=== PATIENT | female | born 1995 | race African-American/Black ===

== ENCOUNTER 2018-03-20 12:30 | Emergency (ER) | payer MEDICAID ==
[2018-03-20 12:50] VITALS: BP 119/60
--- NOTE | 2018-03-20 13:38 | ER Document Report ---
HPI - HPI Patient complains to provider of: head congestion , sinus pain Onset: Other - 6 day Quality of pain: Pressure Pain Level: 3 Context: 22 yo female c/o maxillary sinus pain and pressure with green yellow nasal discharge for 6days. OTC meds not helping nor is nasal spray. No fever. Occasional cough with sore throat. No chest pain or sob. Associated Symptoms: None Exacerbated by: Denies Relieved by: Denies Similar symptoms previously: No Recently seen / treated by doctor: No - ROS ROS below otherwise negative: Yes Systems Reviewed and Negative: Yes All other systems reviewed and negative - EENT EENT: REPORTS: Sore Throat, Ear Pain - RESPIRATORY Respiratory: REPORTS: Coughing Past Medical History - General Information source: Patient - Social History Smoking Status: Never Smoker Chew tobacco use (# tins/day): No Frequency of alcohol use: Occasional Drug Abuse: None Lives with: Family Family History: Reviewed & Not Pertinent Patient has suicidal ideation: No Patient has homicidal ideation: No - Medical History Medical History: Negative Renal/ Medical History: Denies: Hx Peritoneal Dialysis Surgical Hx: Negative Vertical Provider Document - CONSTITUTIONAL Agree With Documented VS: Yes Exam Limitations: No Limitations - INFECTION CONTROL TRAVEL OUTSIDE OF THE [place] IN LAST 30 DAYS: No - HEENT HEENT: Pharyngeal Erythema. negative: Conjuctival Injection, Tympanic Membrane Red, Tympanic Membrane Bulging Notes: Tender maxillary sinuses no facial swelling, boggy naris - NECK Neck: Supple. negative: Lymphadenopathy-Left, Lymphadenopathy-Right - RESPIRATORY Respiratory: Breath Sounds Normal, No Respiratory Distress - CARDIOVASCULAR Cardiovascular: Regular Rate, Regular Rhythm Course - Vital Signs Vital signs: Temp Pulse Resp BP Pulse Ox 98.4 F 54 L 14 119/60 99 03/20/18 12:49 03/20/18 12:49 03/20/18 12:49 03/20/18 12:49 03/20/18 12:49 Discharge - Discharge Clinical Impression: Sinusitis Qualifiers: Sinusitis location: maxillary Chronicity: acute Recurrence: non-recurrent Qualified Code(s): J01.00 - Acute maxillary sinusitis, unspecified Condition: Good Disposition: HOME, SELF-CARE Instructions: Sinusitis ([facility]), Augmentin ([facility]), Acetaminophen Additional Instructions: saline nasal spray four times per day augmentin for 10 days heat to sinus to er if fever, worsening symptoms Prescriptions: Amoxicillin/Potassium Clav [Augmentin 875-125 Tablet] 1 each PO BID #20 tablet Forms: Return to Work Referrals: ANNA BELCHER DO [ASSOCIATE] - Follow up as needed
== END 2018-03-20 13:57 | disposition home or self-care (01) ==
LOC: ER 12:30
DX: J01.00 Acute maxillary sinusitis, unspecified (principal); R09.81 Nasal congestion
CPT/HCPCS: 99283

== ENCOUNTER 2018-08-11 16:51 | Emergency (ER) | payer MEDICAID ==
[2018-08-11 17:01] VITALS: BP 114/61
[2018-08-11] MEDS ORDERED: LIDOCAINE 2% VISCOUS SOLN 20 ML UDCUP PO ONE (18:16)
--- NOTE | 2018-08-11 18:19 | ER Document Report ---
HPI - HPI Patient complains to provider of: Mouth sore Time Seen by Provider: 08/11/18 17:50 Onset: Other - 4 days Onset/Duration: Persistent Quality of pain: Achy Pain Level: 3 Context: Patient complains of tender sore in mouth for the past 4 days. Patient denies any trauma. Patient denies any fever or other symptoms at this time. Patient states the pain causes her difficulty with talking on the phone at her job and she needs a note for work. Associated Symptoms: Other - Mouth sore. denies: Fever, Headache, Sore throat Exacerbated by: Denies Relieved by: Denies Similar symptoms previously: No Recently seen / treated by doctor: No - ROS ROS below otherwise negative: Yes Systems Reviewed and Negative: Yes All other systems reviewed and negative - CONSTITUTIONAL Constitutional: DENIES: Fever, Chills - EENT Notes: Sore in mouth - GASTROINTESTINAL Gastrointestinal: DENIES: Nausea, Patient vomiting - REPRODUCTIVE Reproductive: DENIES: : - DERM Skin Color: Normal Past Medical History - General Information source: Patient - Social History Smoking Status: Never Smoker Frequency of alcohol use: Occasional Drug Abuse: None Occupation: [employer] Family History: Reviewed & Not Pertinent - Medical History Medical History: Negative Renal/ Medical History: Denies: Hx Peritoneal Dialysis Surgical Hx: Negative Vertical Provider Document - CONSTITUTIONAL Agree With Documented VS: Yes Exam Limitations: No Limitations General Appearance: WD/WN, No Apparent Distress - INFECTION CONTROL TRAVEL OUTSIDE OF THE [place] IN LAST 30 DAYS: No - HEENT HEENT: Atraumatic, Normocephalic. negative: Pharyngeal Exudate, Pharyngeal Tenderness, Pharyngeal Erythema, Tympanic Membrane Red, Tympanic Membrane Bulging Mouth Diagram: 1 - tender ulceration to sublingal area - NECK Neck: Normal Inspection, Supple. negative: Lymphadenopathy-Left, Lymphadenopathy-Right - RESPIRATORY Respiratory: Breath Sounds Normal, No Respiratory Distress - CARDIOVASCULAR Cardiovascular: Regular Rate, Regular Rhythm - BACK Back: Normal Inspection - MUSCULOSKELETAL/EXTREMETIES Musculoskeletal/Extremeties: TAVO JUAREZ - NEURO Level of Consciousness: Awake, Alert, Appropriate Motor/Sensory: No Motor Deficit - DERM Integumentary: Warm, Dry Course - Vital Signs Vital signs: Temp Pulse Resp BP Pulse Ox 98.3 F 56 L 16 114/61 98 08/11/18 16:59 08/11/18 16:59 08/11/18 16:59 08/11/18 16:59 08/11/18 16:59 Discharge - Discharge Clinical Impression: Sore in mouth Condition: Stable Disposition: HOME, SELF-CARE Instructions: Mouth Sores ([facility]) Additional Instructions: Return immediately for any new or worsening symptoms Followup with your primary care provider, call tomorrow to make a followup appointment You may use [id number]-[id number] Orajel topically to painful areas. Prescriptions: Naproxen [Naprosyn 250 Nmg Tablet] 1 tab PO BID #14 tablet Nystatin/Dexameth/Diphen [Magic Mouthwash ([facility] Formula) Susp] 5 ml PO QID PRN #120 ml PRN Reason: Forms: Parent Work Note, Return to Work Referrals: [facility] [Provider Group] - Follow up as needed
== END 2018-08-11 18:24 | disposition home or self-care (01) ==
LOC: ER 16:51
DX: K13.79 Other lesions of oral mucosa (principal)
CPT/HCPCS: 99283; J3490

== ENCOUNTER 2018-08-20 18:25 | Emergency (ER) | payer MEDICAID ==
[2018-08-20 21:19] LABS: A TYPE INFLUENZA AG NEGATIVE (NEGATIVE); B INFLUENZA AG NEGATIVE (NEGATIVE)
[2018-08-20] MEDS ORDERED: ACETAMINOPHEN 325 MG TABLET PO ONE (21:36)
[2018-08-20] MEDS ORDERED: IBUPROFEN 600 MG TABLET PO ONE (21:36)
--- NOTE | 2018-08-20 21:37 | ER Document Report ---
ED General - General Chief Complaint: Flu Symptoms Stated Complaint: BODY ACHES Time Seen by Provider: 08/20/18 20:29 Notes: Patient is a 22-year-old female without chronic medical problems who presents with 24 hours of sore throat, nasal congestion and body aches. She states that her main complaint is body aches which are described as diffuse cramping, aching musculoskeletal discomforts. She has not tried to improve her symptoms. Nothin g worsens her symptoms. Denies recent history of similar symptoms. Has not seen her general physician regarding today's concerns. Has not had a recorded fever. Denies associated headache, neck pain, vomiting, diarrhea or altered mental status. TRAVEL OUTSIDE OF THE [place] IN LAST 30 DAYS: No - Related Data Allergies/Adverse Reactions: No Known Allergies Allergy (Verified 08/11/18 17:00) Past Medical History - General Information source: Patient - Social History Smoking Status: Never Smoker Frequency of alcohol use: None Drug Abuse: None Lives with: Spouse/Significant other Family History: Reviewed & Not Pertinent Patient has suicidal ideation: No Patient has homicidal ideation: No Renal/ Medical History: Denies: Hx Peritoneal Dialysis Review of Systems - Review of Systems Notes: Constitutional: Negative for fever. Positive for myalgias HENT: Positive for sore throat and nasal congestion Eyes: Negative for visual changes. Cardiovascular: Negative for chest pain. Respiratory: Negative for shortness of breath. Gastrointestinal: Negative for abdominal pain, vomiting or diarrhea. Genitourinary: Negative for dysuria. Musculoskeletal: Negative for back pain. Skin: Negative for rash. Neurological: Negative for headaches, weakness or numbness. 10 point ROS negative except as marked above and in HPI. Physical Exam - Vital signs Vitals: Temp Pulse Resp BP Pulse Ox 99.3 F 52 L 18 140/109 H 98 08/20/18 18:31 08/20/18 18:31 08/20/18 18:31 08/20/18 18:31 08/20/18 18:31 Interpretation: Normal Notes: PHYSICAL EXAMINATION: GENERAL: Appears moderately uncomfortable but in no acute distress HEAD: Atraumatic, normocephalic. EYES: Pupils equal round and reactive to light, extraocular movements intact, sclera anicteric, conjunctiva are normal. ENT: nares patent, oropharynx clear without exudates. Mild tonsillar erythema. Moist mucous membranes. NECK: Normal range of motion, bilateral anterior cervical lymphadenopathy LUNGS: Breath sounds clear to auscultation bilaterally and equal. No wheezes rales or rhonchi. HEART: Regular rate and rhythm without murmurs ABDOMEN: Soft, nontender, normoactive bowel sounds. No guarding, no rebound. No masses appreciated. EXTREMITIES: Normal range of motion, no pitting or edema. No cyanosis. NEUROLOGICAL: No focal neurological deficits. Moves all extremities spontaneously and on command. PSYCH: Normal mood, normal affect. SKIN: Warm, Dry, normal turgor, no rashes or lesions noted. Course - Re-evaluation Re-evalutation: 08/20/18 21:36 Presentation is most consistent with a viral upper respiratory infection. Patient is overall well appearance, vitals within normal limits, well-hydrated. Patient denies any headache, neck pain, and has no evidence of meningismus on examination. Patient is primarily complaining of sore throat, nasal congestion and body aches. Rapid flu and strep are negative. Lungs are clear bilaterally. No evidence of respiratory distress. Based on clinical exam and history, I do not suspect an acute pneumonia, meningitis, strep pharyngitis, or an acute encephalitis. No further laboratory or imaging testing is indicated at this time. At this time will discharge with return precautions and follow-up recommendations. Verbal discharge instructions given a the bedside and opportunity for questions given. Medication warnings reviewed. Patient is in agreement with this plan and has verbalized understanding of return precautions and the need for primary care follow-up in the next 24-72 hours. - Vital Signs Vital signs: Temp Pulse Resp BP Pulse Ox 98.9 F 92 19 130/98 H 98 08/20/18 23:18 08/20/18 23:18 08/20/18 23:18 08/20/18 23:18 08/20/18 23:18 Discharge - Discharge Clinical Impression: Viral upper respiratory infection, Body aches Condition: Good Disposition: HOME, SELF-CARE Additional Instructions: Your symptoms are most likely due to a viral infection it should resolve over the next 7-14 days. You should take rfvw-faw-lxqedue guanfacine per bottle instructions to help thin the mucus. For nasal congestion: I would recommend that you get jjch-ppv-tsapohw oxymetazoline also known is afrin. Use only per bottle instructions and be sure to never use this for more than 3 days if you can develop severe rebound congestion. You may also use tylenol or ibuprofen as needed for aches and thorat discomfort. Please be sure to drink plenty of fluids and get rest. Return to the emergency department he began having difficulty breathing, chest pain, persistent vomiting, or any other symptoms that are concerning to you.
[2018-08-20 23:18] VITALS: BP 130/98
== END 2018-08-20 23:18 | disposition home or self-care (01) ==
LOC: ER 18:25
DX: J06.9 Acute upper respiratory infection, unspecified (principal); B97.89 Other viral agents as the cause of diseases classified elsewhere; J02.9 Acute pharyngitis, unspecified; R09.81 Nasal congestion; R25.2 Cramp and spasm; M79.10 Myalgia, unspecified site
CPT/HCPCS: 99283; 87070; 87880; 87804; J3490 ×2

== ENCOUNTER 2018-11-06 17:33 | Emergency (ER) | payer MEDICAID ==
--- NOTE | 2018-11-06 18:28 | ER Document Report ---
ED Medical Screen (RME) - General Chief Complaint: Shortness Of Breath Stated Complaint: CHEST TIGHTNESS Time Seen by Provider: 11/06/18 18:25 Mode of Arrival: Ambulatory Notes: pt reports chest tightness, cough, no c/o f/v/d. speaking in clear sentences, no sob, denies cad, asthma, recent trips. I have greeted and performed a rapid initial assessment of this patient. A comprehensive ED assessment and evaluation of the patient, analysis of test results and completion of the medical decision making process will be conducted by additional ED providers. TRAVEL OUTSIDE OF THE [place] IN LAST 30 DAYS: No - Related Data Allergies/Adverse Reactions: No Known Allergies Allergy (Verified 08/11/18 17:00) Past Medical History Renal/ Medical History: Denies: Hx Peritoneal Dialysis Physical Exam - Vital signs Vitals: Temp Pulse Resp BP Pulse Ox 98.5 F 59 L 18 134/67 H 100 11/06/18 18:24 11/06/18 18:24 11/06/18 18:24 11/06/18 18:24 11/06/18 18:24 Course - Vital Signs Vital signs: Temp Pulse Resp BP Pulse Ox 98.5 F 59 L 18 134/67 H 100 11/06/18 18:24 11/06/18 18:24 11/06/18 18:24 11/06/18 18:24 11/06/18 18:24
--- NOTE | 2018-11-06 18:54 | RADIOLOGY REPORT (SQ) ---
EXAM DESCRIPTION: CHEST 2 VIEWS COMPLETED DATE/TIME: 11/06/2018 6:44 pm REASON FOR STUDY: c/o cough, chest tight COMPARISON: None. EXAM PARAMETERS: NUMBER OF VIEWS: two views TECHNIQUE: Digital Frontal and Lateral radiographic views of the chest acquired. RADIATION DOSE: NA LIMITATIONS: none FINDINGS: LUNGS AND PLEURA: No opacities, masses or pneumothorax. No pleural effusion. MEDIASTINUM AND HILAR STRUCTURES: No masses or contour abnormalities. HEART AND VASCULAR STRUCTURES: Heart normal size. No evidence for failure. BONES: No acute findings. HARDWARE: None in the chest. OTHER: No other significant finding. IMPRESSION: NO ACUTE RADIOGRAPHIC FINDING IN THE CHEST. TECHNICAL DOCUMENTATION: JOB ID: [id number] [place]-72 2010 [employer]- All Rights Reserved Reading location - IP/workstation name: [email or web address]
--- NOTE | 2018-11-06 20:53 | ER Document Report ---
HPI - HPI Time Seen by Provider: 11/06/18 18:25 Pain Level: 5 Context: She is a 23-year-old female who presents to the emergency department with a chief complaint of chest tightness and having a hard time breathing. She states that she is also having pains in it hurts when she takes a deep breath in. She has been coughing all day. She has a history of allergies, but stopped taking her Claritin due to her not wanting to take the medication anymore. She attempted to go see her primary care provider, but was not able to to see them because she apparently does not have insurance anymore and had to pay $800 to see her primary care doctor. Associated Symptoms: Allergy/hay fever - CONSTITUTIONAL Constitutional: DENIES: Fever, Chills - EENT EENT: REPORTS: Sore Throat, Nasal Drainage-Clear - NEURO Neurology: REPORTS: Headache - RESPIRATORY Respiratory: REPORTS: Trouble Breathing, Coughing - GASTROINTESTINAL Gastrointestinal: DENIES: Abdominal Pain, Nausea, Patient vomiting, Diarrhea - REPRODUCTIVE Reproductive: DENIES: : - DERM Skin Color: Normal Skin Problems: None Past Medical History - General Information source: Patient - Social History Smoking Status: Never Smoker Frequency of alcohol use: Occasional Drug Abuse: None Family History: Reviewed & Not Pertinent Renal/ Medical History: Denies: Hx Peritoneal Dialysis Vertical Provider Document - CONSTITUTIONAL Agree With Documented VS: Yes Exam Limitations: No Limitations General Appearance: No Apparent Distress - INFECTION CONTROL TRAVEL OUTSIDE OF THE [place] IN LAST 30 DAYS: No - HEENT HEENT: Atraumatic, Normocephalic, PERRLA - NECK Neck: Normal Inspection - RESPIRATORY Respiratory: Breath Sounds Normal, No Respiratory Distress Notes: Cough noted - CARDIOVASCULAR Cardiovascular: Regular Rate, Regular Rhythm Pulses: Normal: Radial - MUSCULOSKELETAL/EXTREMETIES Musculoskeletal/Extremeties: FROM - NEURO Level of Consciousness: Awake, Alert, Appropriate Motor/Sensory: No Motor Deficit, No Sensory Deficit, No Pronator Drift - DERM Integumentary: Warm, Dry Course - Re-evaluation Re-evalutation: 11/06/18 20:55 Patient's physical exam is consistent with seasonal allergies. It is springtime in [place] and there is pollen everywhere. She will be charted on cetirizine and Flonase to help with her symptoms. She will follow-up with her primary care provider when she gets insurance again. - Vital Signs Vital signs: Temp Pulse Resp BP Pulse Ox 98.5 F 59 L 18 134/67 H 100 11/06/18 18:24 11/06/18 18:24 11/06/18 18:24 11/06/18 18:24 11/06/18 18:24 - EKG Interpretation by Me Additional EKG results interpreted by me: 11/06/18 21:01 Sinus arrhythmia. Rate 60; CA 124; QRS 82; QT 400; QTC 400. No ST elevations or depressions. Discharge - Discharge Clinical Impression: Seasonal allergies Condition: Stable Disposition: HOME, SELF-CARE Additional Instructions: You were seen today in the emergency department for chest pains and difficulty breathing. Your symptoms are due to your allergies. Please start taking the allergy medication prescribed. You have also been prescribed Flonase, medication to help with inflammation in your nose. Take as directed. Please follow-up with your primary care once you get insurance in regards to this visit. Prescriptions: Cetirizine HCl [All Day Allergy] 10 mg PO DAILY #30 tablet Fluticasone Propionate [Flonase Nasal Kent 50 Mcg/Kent 16 gm] 2 sprays NASL Q12 #1 inhaler Forms: Return to Work
[2018-11-06] MEDS ORDERED: CETIRIZINE 10 MG TABLET PO ONE (20:54)
[2018-11-06 21:05] VITALS: BP 116/64
--- NOTE | 2018-11-06 21:24 | EKG REPORT ---
SEVERITY:- OTHERWISE NORMAL ECG - SINUS ARRHYTHMIA, RATE 50-74 : Confirmed by: Kate Du MD 06-Nov-2018 21:23:54
== END 2018-11-06 21:06 | disposition home or self-care (01) ==
LOC: ER 17:33
DX: J30.2 Other seasonal allergic rhinitis (principal); R07.9 Chest pain, unspecified; R05 Cough; R51 Headache
CPT/HCPCS: 93005; 99285; 71046; 93010; J3490

== ENCOUNTER 2019-01-24 14:59 | Emergency (ER) | payer SELFPAY ==
[2019-01-24 15:06] VITALS: BP 136/62
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
== END 2019-01-24 16:31 | disposition home or self-care (01) ==
LOC: ER 14:59
DX: M54.2 Cervicalgia (principal); Y08.89XA Assault by other specified means, initial encounter
CPT/HCPCS: 99282

== ENCOUNTER 2019-04-22 19:52 | Emergency (ER) | payer SELFPAY ==
--- NOTE | 2019-04-22 22:58 | ER Document Report ---
HPI - HPI Patient complains to provider of: uri and sinus congestion sx Time Seen by Provider: 04/22/19 22:58 Pain Level: Denies - CONSTITUTIONAL Constitutional: DENIES: Fever, Chills - REPRODUCTIVE Reproductive: DENIES: : Past Medical History - Social History Smoking Status: Unknown if Ever Smoked Family History: Reviewed & Not Pertinent Patient has suicidal ideation: No Patient has homicidal ideation: No Renal/ Medical History: Denies: Hx Peritoneal Dialysis Vertical Provider Document - INFECTION CONTROL TRAVEL OUTSIDE OF THE [place] IN LAST 30 DAYS: No Course - Vital Signs Vital signs: Temp Pulse Resp BP Pulse Ox 97.9 F 62 18 122/68 99 04/22/19 20:04/22/19 20:04/22/19 20:04/22/19 20:04/22/19 20:09 Discharge - Discharge Clinical Impression: Acute sinusitis Qualifiers: Sinusitis location: unspecified location Recurrence: non-recurrent Qualified Code(s): J01.90 - Acute sinusitis, unspecified Condition: Good Disposition: HOME, SELF-CARE Instructions: Sinusitis ([facility]) Additional Instructions: Follow-up with PCP in 1 to 2 days. Return for any worsening symptoms. tylenol or motrin as needed for any pain or fever if not allergic. take the medication as prescribed. drink plenty of fluids. Prescriptions: Amox Tr/Potassium Clavulanate [Augmentin 875-125 Tablet] 1 tab PO BID 10 Days #20 tablet Pseudoephedrine HCl [Sudafed 12 Hour] 120 mg PO Q12 PRN #14 tablet.er PRN Reason:
[2019-04-22] MEDS ORDERED: DEXAMETHASONE SOD PHOS INJ 10 MG/1 ML VIAL INJ ONE (23:20)
[2019-04-23 00:04] VITALS: BP 120/69
== END 2019-04-22 23:30 | disposition home or self-care (01) ==
LOC: ER 19:52
DX: J01.90 Acute sinusitis, unspecified (principal); J06.9 Acute upper respiratory infection, unspecified; R09.81 Nasal congestion
CPT/HCPCS: 99283; J1100

== ENCOUNTER 2019-08-03 20:46 | Emergency (ER) | payer SELFPAY ==
[2019-08-03] MEDS ORDERED: NORMAL SALINE 1000 ML 1,000 ML IV ONE (21:18)
--- NOTE | 2019-08-03 21:22 | ER Document Report ---
ED Medical Screen (RME) - General Chief Complaint: Dizziness Stated Complaint: WEAKNESS Time Seen by Provider: 08/03/19 21:14 TRAVEL OUTSIDE OF THE [place] IN LAST 30 DAYS: No - HPI Notes: 08/03/19 21:19 23-year-old female to the emergency department with complaints of weakness like she is going to pass out that began today. She states that she is currently on her menstrual cycle and it is been abnormally heavy for the past 2 days. She uses a diva cup and usually only has to empty it once a day but yesterday she had to empty it 4 times and today she is incident 5 times. She states she has not passed out but every time she tries to stand up she feels like she is going to go down. She denies any shortness of breath, chest pain. She admits to some slight pelvic pressure and discomfort. She is never had a problem like this in the past. She denies chance for . Performed a brief medical screening exam on the patient and determined that she will need further evaluation by main side provider. Have ordered labs to expedite her care. - Related Data Allergies/Adverse Reactions: No Known Allergies Allergy (Verified 01/24/19 15:00) Past Medical History - Social History Frequency of alcohol use: Occasional Drug Abuse: None Renal/ Medical History: Denies: Hx Peritoneal Dialysis Physical Exam - Vital signs Vitals: Temp Pulse Resp BP Pulse Ox 98.4 F 71 16 116/74 98 08/03/19 21:05 08/03/19 21:05 08/03/19 21:05 08/03/19 21:05 08/03/19 21:05 Course - Vital Signs Vital signs: Temp Pulse Resp BP Pulse Ox 98.4 F 71 16 116/74 98 08/03/19 21:05 08/03/19 21:05 08/03/19 21:05 08/03/19 21:05 08/03/19 21:05
[2019-08-04 00:20] LABS: ABSOLUTE LYMPHOCYTES (AUTO) 1.9 10^3/uL (0.5-4.7); ABSOLUTE MONOCYTES (AUTO) 0.4 10^3/uL (0.1-1.4); ABSOLUTE NEUT (AUTO) 2.2 10^3/uL (1.7-8.2); BASOPHILS % (AUTO) 0.6 % (0-2); EOSINOPHILS % (AUTO) 1.1 % (0-6); HEMATOCRIT 39.8 % (36.0-47.0); HEMOGLOBIN 13.4 g/dL (12.0-15.5); LYMPHOCYTES % (AUTO) 42.2 % (13-45); MEAN CORPUSCULAR HEMOGLOBIN 29.2 pg (27.0-33.4); MEAN CORPUSCULAR HGB CONC 33.6 g/dL (32.0-36.0); MEAN CORPUSCULAR VOLUME 87 fl (80-97); MONOCYTES % (AUTO) 9.1 % (3-13); PLATELET COUNT 302 10^3/uL (150-450); RED BLOOD COUNT 4.57 10^6/uL (3.72-5.28); RED CELL DISTRIBUTION WIDTH 13.4 % (11.5-14.0); TOTAL CELLS COUNTED % (AUTO) 100 %; WHITE BLOOD COUNT 4.6 10^3/uL (4.0-10.5)
[2019-08-04 00:39] LABS: ALBUMIN 4.5 g/dL (3.5-5.0); ALKALINE PHOSPHATASE 65 U/L (38-126); ANION GAP 13 (5-19); ASPARTATE AMINO TRANSFERASE 21 U/L (14-36); BILIRUBIN,DIRECT 0.2 mg/dL (0.0-0.4); BILIRUBIN,TOTAL 0.3 mg/dL (0.2-1.3); BLOOD UREA NITROGEN 10 mg/dL (7-20); CALCIUM 9.3 mg/dL (8.4-10.2); CARBON DIOXIDE 22 mmol/L (22-30); CHLORIDE 104 mmol/L (98-107); GLUCOSE 92 mg/dL (75-110); POTASSIUM 3.9 mmol/L (3.6-5.0); TOTAL PROTEIN 8.4 g/dL (6.3-8.2)
[2019-08-04 03:11] VITALS: BP 121/65
--- NOTE | 2019-08-04 09:27 | EKG REPORT ---
SEVERITY:- OTHERWISE NORMAL ECG - SINUS RHYTHM ATRIAL PREMATURE COMPLEX : Confirmed by: Bjorn Craig 04-Aug-2019 09:27:16
--- NOTE | 2019-08-06 09:15 | ER Document Report ---
Entered by THU LLAMAS SCRIBE 08/04/19 0136 Acting as scribe for:JAMMIE VINES IV, MD ED General - General Chief Complaint: Dizziness Stated Complaint: WEAKNESS Time Seen by Provider: 08/03/19 21:14 Primary Care Provider: ELIS TOMLIN MD [HONORARY] - Follow up as needed Mode of Arrival: Ambulatory Information source: Patient Notes: This 23-year-old female patient presents to the emergency department today with complaints of generalized weakness. Patient states when she stands up she feels very lightheaded. Patient states that she is currently on her period and she has a history of heavy menstrual bleeding which is consistent with this current menses. Patient denies any recent illnesses. Of note, the patient has been dieting recently, stating she recently switched to the keto diet which is new for her. TRAVEL OUTSIDE OF THE [place] IN LAST 30 DAYS: No - Related Data Allergies/Adverse Reactions: No Known Allergies Allergy (Verified 01/24/19 15:00) Past Medical History - General Information source: Patient - Social History Smoking Status: Never Smoker Cigarette use (# per day): No Frequency of alcohol use: Occasional Drug Abuse: None Lives with: Family Family History: Reviewed & Not Pertinent Patient has suicidal ideation: No Patient has homicidal ideation: No Review of Systems - Review of Systems Constitutional: See HPI, Weakness EENT: No symptoms reported Cardiovascular: See HPI, Lightheaded Respiratory: No symptoms reported Gastrointestinal: No symptoms reported Genitourinary: No symptoms reported Female Genitourinary: No symptoms reported Musculoskeletal: No symptoms reported Skin: No symptoms reported Hematologic/Lymphatic: No symptoms reported Neurological/Psychological: No symptoms reported -: Yes All other systems reviewed and negative Physical Exam - Vital signs Vitals: Temp Pulse Resp BP Pulse Ox 98.4 F 71 16 116/74 98 08/03/19 21:05 08/03/19 21:05 08/03/19 21:05 08/03/19 21:05 08/03/19 21:05 - Notes Notes: Physical Exam: General: Alert, appears well. HEENT: Normocephalic. Atraumatic. PERRL. Extraocular movements intact. Oropharynx clear. Neck: Supple. Non-tender. Respiratory: No respiratory distress. Clear and equal breath sounds bilaterally. Cardiovascular: Regular rate and rhythm. Abdominal: Normal Inspection. Non-tender. No distension. Normal Bowel Sounds. Back: No gross abnormalities. Extremities: Moves all four extremities. Upper extremities: Normal inspection. Normal ROM. Lower extremities: Normal inspection. No edema. Normal ROM. Neurological: Normal cognition. AAOx4. Normal speech. Psychological: Normal affect. Normal Mood. Skin: Warm. Dry. Normal color. Course - Vital Signs Vital signs: Temp Pulse Resp BP Pulse Ox 98.5 F 64 16 121/65 100 08/04/19 00:54 08/04/19 03:02 08/04/19 00:54 08/04/19 03:02 08/04/19 00:54 - Laboratory Result Diagrams: 08/03/19 23:59 08/03/19 23:59 Laboratory results interpreted by me: 08/03/19 23:59 Total Protein 8.4 H Discharge - Discharge Clinical Impression: Dizziness Condition: Good Disposition: HOME, SELF-CARE Instructions: Dizziness ([facility]) Additional Instructions: Return to the Emergency Department without delay if any worse. HOME CARE INSTRUCTIONS & INFORMATION: Thank you for choosing us for your medical needs. We hope you're satisfied with the care you received. After you leave, you must properly care for your problem and, at the same time, observe its progress. Any condition can change. Some illnesses can change rapidly over hours or days. If your condition worsens, return to the Emergency Department o r see your physician promptly. ABOUT YOUR X-RAYS AND EKG'S: If you had an EKG or X-rays taken, they have been read by the Emergency Physician. The X-rays and EKG's will also be read by a Radiologist or Manager Small Business within 24 hours. If discrepancies are noted, you will be notified by telephone. Please be certain the ED has a correct telephone number & address where you can be reached. Also, realize that some fractures or abnormalities do not show up on initial X-rays. If your symptoms continue, see your physician. ABOUT YOUR LABORATORY TEST: If you had laboratory tests, the results have been reviewed by the Emergency Physician. Some test results (for example cultures) may not be available for several days. You will be contacted if any test result shows you need additional treatment. Please be certain the ED has a correct telephone number and address where you can be reached. ABOUT YOUR MEDICATIONS: You will receive instructions on how to take your medicine on the prescription label you receive. Additional information may be provided by the Pharmacy. If you have questions afterwards, call the ED for clarification or further instructions. Some prescribed medications may cause drowsiness. Do not perform tasks such as driving a car or operating machinery without consulting your Pharmacist. If you feel you need a refill of pain medication, your condition will need re-evaluation. Please do not call for a refill of any medication. ABOUT YOUR SIGNATURE: Signature of this document acknowledges to followin. Understanding that you received emergency treatment and that you may be released before al medical problems are known or treated. Please be certain the ED has a correct phone number & address where you can be reached. 2. Acknowledgement that you will arrange for follow-up care as recommended. 3. Authorization for the Emergency Physician to provide information to your follow-up Physician in order to maximize your care. AT ANY TIME, IF YOUR SYMPTOMS CHANGE SIGNIFICANTLY OR WORSEN OR YOU DEVELOP NEW SYMPTOMS, RETURN TO THE EMERGENCY DEPARTMENT IMMEDIATELY FOR RE-EVALUATION. OUR GOAL IS TO PROVIDE EXCELLENT MEDICAL CARE! WE HOPE THAT WE HAVE MET YOUR EXPECTATIONS DURING YOUR EMERGENCY DEPARTMENT VISIT AND THAT YOU FEEL YOU HAVE RECEIVED EXCELLENT CARE! Forms: Return to Work Referrals: ELIS TOMLIN MD [HONORARY] - Follow up as needed I personally performed the services described in the documentation, reviewed and edited the documentation which was dictated to the scribe in my presence, and it accurately records my words and actions.
== END 2019-08-04 03:32 | disposition home or self-care (01) ==
LOC: ER 20:46
DX: R42 Dizziness and giddiness (principal); R53.1 Weakness
CPT/HCPCS: 93005; 99284; 96360; 96361; 86900; 86901; 36415; 86850; 84703; 85025; 80053; 93010; J7030

== ENCOUNTER 2019-08-09 18:12 | Emergency (ER) | payer SELFPAY ==
[2019-08-09] MEDS ORDERED: PREDNISONE 20 MG TABLET PO ONE (21:46)
[2019-08-09] MEDS ORDERED: BENZONATATE 100 MG CAPSULE PO ONE (21:46)
--- NOTE | 2019-08-09 21:47 | ER Document Report ---
HPI - HPI Time Seen by Provider: 08/09/19 21:41 Notes: 23-year-old female presenting to the emergency department cough, congestion, sore throat and body aches over the last 5 to 6 days. Patient denies knowledge of any fever. Reports multiple sick contacts at work. - REPRODUCTIVE Reproductive: DENIES: : Past Medical History - General Information source: Patient - Social History Smoking Status: Never Smoker Frequency of alcohol use: None Drug Abuse: None Family History: Reviewed & Not Pertinent - Medical History Medical History: Negative Renal/ Medical History: Denies: Hx Peritoneal Dialysis Surgical Hx: Negative Vertical Provider Document - CONSTITUTIONAL Notes: PHYSICAL EXAMINATION: GENERAL: Well-appearing, well-nourished and in no acute distress. HEAD: Atraumatic, normocephalic. EYES: Pupils equal round extraocular movements intact, conjunctiva are normal. ENT: Nares patent, no obvious tonsillar swelling or exudates. NECK: Normal range of motion LUNGS: No respiratory distress, lung sounds clear and equal bilaterally Musculoskeletal: Normal range of motion NEUROLOGICAL: Normal speech, normal gait. PSYCH: Normal mood, normal affect. SKIN: Warm, Dry, normal turgor, no rashes or lesions noted. - INFECTION CONTROL TRAVEL OUTSIDE OF THE [place] IN LAST 30 DAYS: No Course - Re-evaluation Re-evalutation: Microbiology 08/09/19 21:45 Throat Culture - Preliminary Throat Laboratory 08/09/19 08/09/19 21:45 21:45 Influenza A (Rapid) NEGATIVE Influenza B (Rapid) POSITIVE Group A Strep Rapid NEGATIVE Patient appears well, nontoxic, physical examination is unremarkable. Patient tested positive for influenza B. Patient will be discharged home in stable condition at this time. - Vital Signs Vital signs: Temp Pulse Resp BP Pulse Ox 98.7 F 89 16 101/83 100 08/09/19 18:42 08/09/19 18:42 08/09/19 18:42 08/09/19 18:42 08/09/19 18:42 Discharge - Discharge Clinical Impression: Influenza Condition: Stable Disposition: HOME, SELF-CARE Additional Instructions: You tested positive for the flu. This is a virus and will not respond to antibiotic therapy. I have written you a prescription to help with the symptoms. Please wash your hands and stay away from people, no work for a total of 7 days from the first day you got sick. Drink plenty of fluids. Alternate Tylenol and ibuprofen Prescriptions: Benzonatate [Tessalon Perles 100 mg Capsule] 1 - 2 tab PO Q8HP PRN #30 capsule PRN Reason: Prednisone [Deltasone 20 mg Tablet] 3 tab PO DAILY 5 Days #15 tablet Forms: Return to Work
[2019-08-09 22:46] LABS: A TYPE INFLUENZA AG NEGATIVE (NEGATIVE); B INFLUENZA AG POSITIVE (NEGATIVE)
[2019-08-09 23:35] VITALS: BP 134/77
== END 2019-08-09 23:35 | disposition home or self-care (01) ==
LOC: ER 18:12
DX: J11.1 Influenza due to unidentified influenza virus with other respiratory manifestations (principal); M79.10 Myalgia, unspecified site
CPT/HCPCS: 87070; 87804; 87880; 99283

== ENCOUNTER 2019-10-22 19:07 | Emergency (ER) | payer SELFPAY ==
--- NOTE | 2019-10-22 19:43 | ER Document Report ---
HPI - HPI Patient complains to provider of: Cellulitis to left ear and left ring finger nail area Time Seen by Provider: 10/22/19 19:32 Onset: Last week Onset/Duration: Gradual, Persistent Quality of pain: Achy Severity: Moderate Pain Level: 3 Context: 24-year-old female presented to ED for infected earring to the left ear and a cellulitis around the left ring finger nail. She has artificial nails on her nails and she has had this fingernail several times knocking the nail back some. The nail is mildly loose. States that she did have some drainage from around the nail a couple days ago. Is drainage from the site of the left earring. The earring has been removed and irrigated with saline. We will place the patient on Keflex for both infections. She has stated she would remove the length from the nail and soak her finger 3 times a day. Associated Symptoms: Other - Affected hearing to the left ear and cellulitis around the nail from a injured nail to the left ring finger Exacerbated by: Movement - Movement of the ear or the nail Relieved by: Other - Holding the nail in the ear still Similar symptoms previously: No Recently seen / treated by doctor: No - CONSTITUTIONAL Constitutional: DENIES: Fever, Chills - EENT EENT: REPORTS: Ear Pain. DENIES: Sore Throat, Nasal Drainage-Clear, Nasal Drainage-Purulent, Congestion, Eye problems - CARDIOVASCULAR Cardiovascular: DENIES: Chest pain - RESPIRATORY Respiratory: DENIES: Trouble Breathing, Coughing - GASTROINTESTINAL Gastrointestinal: DENIES: Abdominal Pain, Nausea, Patient vomiting, Diarrhea, Constipation, Black / Bloody Stools - URINARY Urinary: DENIES: Dysuria, Urgency, Frequency - REPRODUCTIVE Reproductive: DENIES: :, Postmenopausal, Abnormal bleeding / discharge - MUSCULOSKELETAL Musculoskeletal: REPORTS: Extremity pain - DERM Skin Color: Normal Notes: Infected earring site and cellulitis around the left fingernail ring finger Past Medical History - General Information source: Patient - Social History Smoking Status: Never Smoker Frequency of alcohol use: Social Drug Abuse: None Lives with: Family Family History: Reviewed & Not Pertinent Patient has suicidal ideation: No Patient has homicidal ideation: No - Past Medical History Cardiac Medical History: Reports: None Pulmonary Medical History: Reports: None EENT Medical History: Reports: None Neurological Medical History: Reports: None Endocrine Medical History: Reports: None Renal/ Medical History: Reports: None Malignancy Medical History: Reports: None GI Medical History: Reports: None Musculoskeletal Medical History: Reports None Skin Medical History: Reports None Psychiatric Medical History: Reports: None Traumatic Medical History: Reports: None Infectious Medical History: Reports: None Past Surgical History: Reports: Hx Oral Surgery - [place] teeth - Immunizations Immunizations up to date: Yes Hx Diphtheria, Pertussis, Tetanus Vaccination: Yes - June 2019 Vertical Provider Document - CONSTITUTIONAL Agree With Documented VS: Yes Exam Limitations: No Limitations General Appearance: WD/WN, No Apparent Distress - INFECTION CONTROL TRAVEL OUTSIDE OF THE [place] IN LAST 30 DAYS: No - HEENT Notes: Infected earring site to the left ear purulent drainage removed hearing irrigated ear patient has been instructed on cleaning the ears 3 times a day and using Keflex for the infection. - NECK Neck: Normal Inspection - RESPIRATORY Respiratory: Breath Sounds Normal, No Respiratory Distress, Chest Non-Tender - CARDIOVASCULAR Cardiovascular: Regular Rate, Regular Rhythm, No Murmur - GI/ABDOMEN Gastrointestinal: Abdomen Soft, Abdomen Non-Tender, No Organomegaly, Normal Bowel Sounds - MUSCULOSKELETAL/EXTREMETIES Musculoskeletal/Extremeties: MAEW, FROM, Tender - Tenderness to the ring finger around the nail. negative: Edema, Eccymosis - NEURO Level of Consciousness: Awake Motor/Sensory: No Motor Deficit, No Sensory Deficit, No Pronator Drift - DERM Integumentary: Warm, Dry Notes: Purulent drainage from the left ear ring site. No drainage noted at the left ring finger nail. There is some looseness and movement to the fingernail. Patient will soak this and Epson salt and take antibiotics as prescribed. Course - Vital Signs Vital signs: Temp Pulse Resp BP Pulse Ox 98.9 F 58 L 16 131/67 H 98 10/22/19 19:17 10/22/19 19:17 10/22/19 19:17 10/22/19 19:17 10/22/19 19:17 Discharge - Discharge Clinical Impression: Infected left hearing site, Painful left ring finger at nail site Condition: Stable Disposition: HOME, SELF-CARE Additional Instructions: You were seen today for an infected earring site. The earring has been removed the site has been irrigated with saline. These clean the site with peroxide tonight and then cleaned with water and then alcohol at least twice daily for the next several days. Please cut the fingernail on the left ring finger to just past the finger and then soak this finger and Epson salt 3 times a day. Epsom Salt Soaks Soak the wound area in a container of warm epsom salt water. If you can't get the wound area into a bucket or rodriguez, use a folded towel soaked in the epsom salt solution and apply to the area. Use clean hot tap water (about the temperature of a very warm bath), mixing in about one (1) teaspoon for every pint of water. Two gallon --> 16 teaspoons Epsom Salts One gallon --> 8 teaspoons Epsom Salts Two quarts --> 4 teaspoons Epsom Salts One quart --> 2 teaspoons Epsom Salts Soak the wound for about 20 minutes while gently moving it around in the water. Repeat this four (4) times a day. Cephalexin The antibiotic you've been prescribed is a member of the cephalosporin class. This type of antibiotic covers a wide variety of infections, including those of the skin, lungs, and urinary tract. It's useful for staph infections. This antibiotic is slightly similar to the penicillin family. In rare cases, a person who is allergic to penicillin will also be allergic to this medication. If you have had a severe allergic reaction to penicillin, and have not taken this antibiotic since that time, notify your doctor. Antibiotics which cover many germs ("broad spectrum" antibiotics) are more likely to cause diarrhea or "yeast" infections. Women prone to vaginal yeast problems may suffer an attack after taking this antibiotic. In infants, oral thrush (white spots "stuck" on the cheek) or yeast diaper rash may result. See your doctor if these problems occur. Call at once if you develop itching, hives, shortness of breath, or lightheadedness. Acetaminophen Acetaminophen may be taken for pain relief or fever control. It's much safer than aspirin, offering a wider range of "safe" dosages. It is safe during . Some brand names are Tylenol, Panadol, Datril, Anacin 3, Tempra, and Liquiprin. Acetaminophen can be repeated every four hours. The following are maximum recommended dosages: WEIGHT Dose Drops Elixir Chewable(80mg) (LBS.) drprs=droppers tsp=teaspoon 6 40 mg .4 ml (1/2) 6-11 80 mg .8 ml (full) 1/2 tsp 1 tab 12-16 120 mg 1 1/2 drprs 3/4 tsp 1 1/2 tabs 17-23 160 mg 2 drprs 1 tsp 2 tabs 24-30 240 mg 3 drprs 1 1/2 tsp 3 tabs 30-35 320 mg 2 tsp 4 tabs 36-41 360 mg 2 1/4 tsp 4 1/2 tabs 42-47 400 mg 2 1/2 tsp 5 tabs 48-53 480 mg 3 tsp 6 tabs 54-59 520 mg 3 1/4 tsp 6 1/2 tabs 60-64 560 mg 3 1/2 tsp 7 tabs 65-70 600 mg 3 3/4 tsp 7 1/2 tabs 71-76 640 mg 4 tsp 8 tabs 77-82 720 mg 4 1/2 tsp 9 tabs 83-88 800 mg 5 tsp 10 tabs >89 pounds or adults 650 mg to 900 mg Acetaminophen can be repeated every four hours. Maximum daily dose not to exceed 4000 mg. These maximum recommended dosages are slightly higher than the dosages written on the product container, but these dosages are very safe and well below the toxic dosage for acetaminophen. Ibuprofen Ibuprofen is an excellent, safe drug for pain control. In addition, it has potent antiinflammatory effects which are beneficial, especially in the treatment of injuries, arthritis, or tendonitis. It's best to take ibuprofen with food. Persons with ulcer disease or allergy to aspirin should notify their physician of this before taking ibuprofen. Take the medication exactly as prescribed. Don't take additional doses unless instructed to do so by your doctor. If you develop wheezing, shortness of breath, hives, faintness, stomach pain, vomiting, or dark black stools, return for re-evaluation at once. FOLLOW-UP CARE: If you have been referred to a physician for follow-up care, call the physicians office for an appointment as you were instructed or within the next two days. If you experience worsening or a significant change in your symptoms, notify the physician immediately or return to the Emergency Department at any time for re-evaluation. Prescriptions: Cephalexin Monohydrate [Keflex 500 mg Capsule] 500 mg PO Q6H 5 Days #20 capsule Forms: Elevated Blood Pressure, Parent Work Note, Return to Work Referrals: [facility] [Provider Group] - Follow up as needed [facility] [Provider Group] - Follow up as needed [facility] [Provider Group] - Follow up as needed [facility] [Provider Group] - Follow up as needed
[2019-10-22 19:50] VITALS: BP 131/70
[2019-10-22] MEDS ORDERED: CEPHALEXIN 500 MG CAPSULE PO ONE (19:52)
== END 2019-10-22 19:59 | disposition home or self-care (01) ==
LOC: ER 19:07
DX: H60.12 Cellulitis of left external ear (principal); L03.012 Cellulitis of left finger
CPT/HCPCS: 99282

== ENCOUNTER 2020-03-12 14:00 | Emergency (ER) | payer SELFPAY ==
[2020-03-12 15:20] VITALS: BP 128/76
--- NOTE | 2020-03-12 15:20 | ER Document Report ---
HPI - HPI Patient complains to provider of: Vaginal irritation Time Seen by Provider: 03/12/20 15:08 Onset: Yesterday Quality of pain: No pain, Other - 24-year-old female presents to the emergency room today stating that she had redness irritation and moisture to the external area of her vagina after using a new shaving cream which she feels that caused reaction. She has no discharge from inside the vagina no pain Pain Level: 2 Associated Symptoms: None Exacerbated by: Denies Similar symptoms previously: Yes - ROS ROS below otherwise negative: No Systems Reviewed and Negative: Yes All other systems reviewed and negative - CONSTITUTIONAL Constitutional: DENIES: Fever, Chills - REPRODUCTIVE Reproductive: DENIES: : Past Medical History - General Information source: Patient - Social History Smoking Status: Never Smoker Chew tobacco use (# tins/day): No Frequency of alcohol use: Occasional Drug Abuse: None Family History: Reviewed & Not Pertinent Renal/ Medical History: Denies: Hx Peritoneal Dialysis Past Surgical History: Reports: Hx Oral Surgery - [place] teeth - Immunizations Immunizations up to date: Yes Hx Diphtheria, Pertussis, Tetanus Vaccination: Yes - June 2019 Vertical Provider Document - CONSTITUTIONAL Agree With Documented VS: Yes - INFECTION CONTROL TRAVEL OUTSIDE OF THE [place] IN LAST 30 DAYS: No - HEENT HEENT: Atraumatic, Normocephalic, PERRLA - NECK Neck: Normal Inspection - RESPIRATORY Respiratory: Breath Sounds Normal - CARDIOVASCULAR Cardiovascular: Regular Rate, Regular Rhythm - GI/ABDOMEN Gastrointestinal: Abdomen Soft, Abdomen Non-Tender - BACK Back: Normal Inspection - MUSCULOSKELETAL/EXTREMETIES Musculoskeletal/Extremeties: LARRY FROM Course - Re-evaluation Re-evalutation: 03/12/20 15:12 Patient requested we defer the examination if possible. She will be following up with the [facility]. She states she had no green discharge just redness and irritation to the outside after she use the shave cream states that this is happened before and she got a yeast infection. - Vital Signs Vital signs: Temp Pulse Resp BP Pulse Ox 97.5 F 71 18 129/81 H 100 03/12/20 14:18 03/12/20 14:18 03/12/20 14:18 03/12/20 14:18 03/12/20 14:18 Discharge - Discharge Clinical Impression: Vaginal candidiasis Condition: Good Disposition: HOME, SELF-CARE Additional Instructions: Discard shaving cream that was used. Must go back to routine agents. Medication as prescribed. Follow-up with [facility] 2 to 3 days. Follow-up with PMD. Prescriptions: Fluconazole [Diflucan] 150 mg PO QAM #1 tablet Clotrimazole/Betamethasone Dip [Lotrisone Cream 15 gm] 15 applic EXT BID #1 tube
== END 2020-03-12 15:18 | disposition home or self-care (01) ==
LOC: ER 14:00
DX: B37.3 Candidiasis of vulva and vagina (principal)
CPT/HCPCS: 99283

== ENCOUNTER 2020-09-08 12:48 | Emergency (ER) | payer SELFPAY ==
--- NOTE | 2020-09-08 13:52 | ER Document Report ---
ED Medical Screen (RME) - General Chief Complaint: Skin Problem Stated Complaint: FACIAL SWELLING Time Seen by Provider: 09/08/20 13:38 Mode of Arrival: Ambulatory Information source: Patient Notes: HPI; 24 y/o female presents to the emergency room complaining of questionable nose infection from a new piercing about a month ago. Drains some pus at times no fevers. Also concerned about possible Denies nausea, vomiting no urine symptoms . LMP 08/08/20 has lower pelvic cramping, no vaginal bleeding no medications for symptoms. PE:alert and oriented x 3. no nasal drainage noted. tip of nose is tender to palpation, no erythema. Lungs: CTA without rales, rhonchi, or wheezes. Heart: RRR without murmurs rubs or gallops. I have greeted and performed a rapid initial assessment of this patient. A comprehensive ED assessment and evaluation of the patient, analysis of test results and completion of the medical decision making process will be conducted by additional ED providers. I have specifically instructed the patient or family members with the patient to immediately return to any nursing staff should anything change in the patient's condition or with their chief complaint. TRAVEL OUTSIDE OF THE [place] IN LAST 30 DAYS: No - Related Data Allergies/Adverse Reactions: No Known Allergies Allergy (Verified 09/08/20 13:34) Past Medical History - Social History Chew tobacco use (# tins/day): No Frequency of alcohol use: Occasional Drug Abuse: None Renal/ Medical History: Denies: Hx Peritoneal Dialysis Past Surgical History: Reports: Hx Oral Surgery - [place] teeth - Immunizations Immunizations up to date: Yes Hx Diphtheria, Pertussis, Tetanus Vaccination: Yes - June 2019 Physical Exam - Vital signs Vitals: Temp Pulse Resp BP Pulse Ox 97.9 F 61 20 133/71 H 99 09/08/20 13:14 09/08/20 13:14 09/08/20 13:14 09/08/20 13:14 09/08/20 13:14 Course - Vital Signs Vital signs: Temp Pulse Resp BP Pulse Ox 97.9 F 61 20 133/71 H 99 09/08/20 13:14 09/08/20 13:14 09/08/20 13:14 09/08/20 13:14 09/08/20 13:14
[2020-09-08 14:13] LABS: ABSOLUTE BASOPHILS # (AUTO) 0.1 10^3/uL (0.0-0.2); ABSOLUTE EOSINOPHILS # (AUTO) 0.1 10^3/uL (0.0-0.6); ABSOLUTE LYMPHOCYTES (AUTO) 1.9 10^3/uL (0.5-4.7); ABSOLUTE MONOCYTES (AUTO) 0.4 10^3/uL (0.1-1.4); ABSOLUTE NEUT (AUTO) 2.9 10^3/uL (1.7-8.2); BASOPHILS % (AUTO) 1.1 % (0-2); EOSINOPHILS % (AUTO) 1.7 % (0-6); HEMATOCRIT 39.7 % (36.0-47.0); HEMOGLOBIN 13.2 g/dL (12.0-15.5); LYMPHOCYTES % (AUTO) 35.8 % (13-45); MEAN CORPUSCULAR HEMOGLOBIN 28.6 pg (27.0-33.4); MEAN CORPUSCULAR HGB CONC 33.2 g/dL (32.0-36.0); MEAN CORPUSCULAR VOLUME 86 fl (80-97); MONOCYTES % (AUTO) 7.6 % (3-13); PLATELET COUNT 346 10^3/uL (150-450); RED BLOOD COUNT 4.61 10^6/uL (3.72-5.28); RED CELL DISTRIBUTION WIDTH 13.6 % (11.5-14.0); SEGMENTED NEUTROPHILS % (AUTO) 53.8 % (42-78); TOTAL CELLS COUNTED % (AUTO) 100 %; WHITE BLOOD COUNT 5.3 10^3/uL (4.0-10.5)
[2020-09-08 14:17] LABS: APPEARANCE,URINE CLOUDY; BILIRUBIN,URINE NEGATIVE (NEGATIVE); COLOR,URINE YELLOW; GLUCOSE, URINE NEGATIVE (NEGATIVE); KETONES,URINE NEGATIVE (NEGATIVE); LEUKOCYTE ESTERASE,URINE NEGATIVE (NEGATIVE); NITRITE,URINE NEGATIVE (NEGATIVE); PROTEIN,URINE NEGATIVE (NEGATIVE); URINE SPECIFIC GRAVITY 1.016; UROBILINOGEN,URINE NEGATIVE mg/dL (<2.0)
[2020-09-08 14:42] LABS: ALBUMIN 4.6 g/dL (3.5-5.0); ALKALINE PHOSPHATASE 85 U/L (38-126); ANION GAP 11 (5-19); ASPARTATE AMINO TRANSFERASE 30 U/L (14-36); BILIRUBIN,DIRECT 0.2 mg/dL (0.0-0.4); BILIRUBIN,TOTAL 0.5 mg/dL (0.2-1.3); BLOOD UREA NITROGEN 7 mg/dL (7-20); CALCIUM 9.3 mg/dL (8.4-10.2); CARBON DIOXIDE 25 mmol/L (22-30); CHLORIDE 104 mmol/L (98-107); GLUCOSE 98 mg/dL (75-110); POTASSIUM 4.3 mmol/L (3.6-5.0); TOTAL PROTEIN 8.3 g/dL (6.3-8.2)
--- NOTE | 2020-09-08 15:12 | ER Document Report ---
ED General - General Chief Complaint: Skin Problem Stated Complaint: FACIAL SWELLING Time Seen by Provider: 09/08/20 13:38 Mode of Arrival: Ambulatory Notes: CHIEF COMPLAINT: Possible nasal piercing infection HPI: 24-year-old female presenting because she is concerned about an infection in her nasal septum from a piercing she got a month ago. Occasionally has some discomfort and drainage from the area. No swelling of the nose. Has not seen her PCP about this issue. Patient also requested a test today because she missed her last menstrual cycle ROS: See HPI - all other systems were reviewed and are otherwise negative Constitutional: no fever Eyes: no drainage, no blurred vision ENT: no runny nose, no sore throat, positive nasal discharge GI: no vomiting, no diarrhea, no abdominal pain : no dysuria Integumentary: no rash MEDICATIONS: I agree with the patient medications as charted by the RN. ALLERGIES: I agree with the allergies as charted by the RN. PAST MEDICAL HISTORY/PAST SURGICAL HISTORY: Reviewed and agree as charted by RN. SOCIAL HISTORY: Reviewed and agree as charted by RN. FAMILY HISTORY: No significant familial comorbid conditions directly related to patient complaint EXAM: Reviewed vital signs as charted by RN. CONSTITUTIONAL: Alert and oriented and responds appropriately to questions. Well-appearing; well-nourished HEAD: Normocephalic; atraumatic EYES: PERRL; Conjunctivae clear, sclerae non-icteric ENT: normal nose; no rhinorrhea; moist mucous membranes; pharynx without lesions noted, no uvula edema or deviation, no tonsillar hypertrophy, phonation normal. Multiple piercings in the nose including 1 in the nasal septum there does not appear to be significant erythema or degradation of the tissue. No overlying erythema. We will place her on Bactroban ointment which should cover most pathogens in the nasal passage. She has no overlying cellulitis or abscess to suggest need for oral antibiotics. NECK: Supple without meningismus; non-tender; no cervical lymphadenopathy, no masses CARD: Capillary refill less than 3 seconds RESP: Normal chest excursion without splinting or tachypnea ABD/GI: non-distended BACK: The back appears normal EXT: Normal ROM in all joints; no cyanosis, no effusions, no edema SKIN: Normal color for age and race; warm; dry; good turgor NEURO: Moves all extremities equally; Motor and sensory function intact PSYCH: The patient's mood and manner are appropriate. Grooming and personal hygiene are appropriate. MDM: 24-year-old presenting for essentially a test which was negative and to have a piercing in the nasal septum evaluated I do not see a significant infection but as she is concerned for will place her on Bactroban follow-up PCP TRAVEL OUTSIDE OF THE [place] IN LAST 30 DAYS: No - Related Data Allergies/Adverse Reactions: No Known Allergies Allergy (Verified 09/08/20 13:34) Past Medical History - General Information source: Patient - Social History Smoking Status: Never Smoker Chew tobacco use (# tins/day): No Frequency of alcohol use: Occasional Drug Abuse: None Family History: Reviewed & Not Pertinent Renal/ Medical History: Denies: Hx Peritoneal Dialysis Past Surgical History: Reports: Hx Oral Surgery - [place] teeth - Immunizations Immunizations up to date: Yes Hx Diphtheria, Pertussis, Tetanus Vaccination: Yes - June 2019 Physical Exam - Vital signs Vitals: Temp Pulse Resp BP Pulse Ox 97.9 F 61 20 133/71 H 99 09/08/20 13:14 09/08/20 13:14 09/08/20 13:14 09/08/20 13:14 09/08/20 13:14 Course - Vital Signs Vital signs: Temp Pulse Resp BP Pulse Ox 97.9 F 61 20 133/71 H 99 09/08/20 13:14 09/08/20 13:14 09/08/20 13:14 09/08/20 13:14 09/08/20 13:14 - Laboratory Results Result Diagrams: 09/08/20 14:02 09/08/20 14:02 Laboratory Results Interpreted: 09/08/20 09/08/20 14:02 14:02 ALT 37 H Total Protein 8.3 H Urine Blood SMALL H Critical Laboratory Results Reviewed: No Critical Results - Radiology Results Critical Radiology Results Reviewed: No Critical Results Discharge - Discharge Clinical Impression: test negative Nasal inflammation Qualifiers: Rhinitis type: unspecified Qualified Code(s): J31.0 - Chronic rhinitis Condition: Stable Disposition: HOME, SELF-CARE Additional Instructions: Apply the Bactroban to the inner aspect of the nose and nasal passage twice to 3 times daily. Follow-up with your primary care provider for reevaluation of the possible piercing infection. Follow-up with your [facility] [facility] for evaluation of your abnormal menstrual cycles Prescriptions: Mupirocin [Bactroban 2% Ointment 22 gm] 1 applic TP TID #1 tube
[2020-09-08 16:22] VITALS: BP 127/82
== END 2020-09-08 16:22 | disposition home or self-care (01) ==
LOC: ER 12:48
DX: J31.0 Chronic rhinitis (principal); Z32.02 Encounter for pregnancy test, result negative
CPT/HCPCS: 36415; 80053; 81001; 84703; 85025; 99283